=== PATIENT | female | born 2000 | race Caucasian/White ===

== ENCOUNTER 2023-08-09 17:56 | Emergency (ER) | payer BC, MEDICAID ==
[~2023-08-09] VITALS: Ht 157.5 cm; Wt 63.5 kg
[2023-08-09 17:57] VITALS: BP_SYST 150; PULSE 79; RESP 16; TEMP 97.7; O2SAT 99
[2023-08-09] MEDS ORDERED: KETOROLAC TROMETHAMINE 30 MG VIAL ONE (19:07)
[2023-08-09] MEDS ORDERED: KETOROLAC TROMETHAMINE 30 MG VIAL IVP ONE (19:15)
[2023-08-09 19:38] LABS: BILIRUBIN,URINE NEGATIVE (NEGATIVE); BLOOD, URINE NEGATIVE (NEGATIVE); CLARITY/URINE CLEAR (CLEAR); COLOR,URINE YELLOW (YELLOW); GLUCOSE,URINE NEGATIVE (NEGATIVE); KETONES,URINE NEGATIVE (NEGATIVE); LEUKOCYTE ESTERASE ,URINE NEGATIVE (NEGATIVE); NITRITE, URINE NEGATIVE (NEGATIVE); PH,URINE 8.5 (5.0-8.0); PROTEIN URINE NEGATIVE (NEGATIVE); UROBILINOGEN,URINE 0.2 (0.2-1.0)
[2023-08-09] MEDS ORDERED: ONDA-8 TL (22:15)
[2023-08-09] MEDS ORDERED: IBUP-1969 PO (22:15)
[2023-08-09 22:26] VITALS: BP_SYST 145; PULSE 75; RESP 16; TEMP 97.8; O2SAT 99
== END 2023-08-09 22:24 | disposition home or self-care (01) ==
LOC: SED 17:56
DX: R10.2 Pelvic and perineal pain (principal); R10.30 Lower abdominal pain, unspecified; Z79.899 Other long term (current) drug therapy
CPT/HCPCS: 99285; 96374; 76830; 76857; 81001; 81025; 81003; J1885

== ENCOUNTER 2023-08-15 11:23 | Emergency (ER) | payer BC ==
[~2023-08-15] VITALS: Ht 157.5 cm; Wt 18.1 kg
[~2023-08-15 11:23] MED LIST: IBUP-1969 PO; ONDA-8 TL
[2023-08-15 11:56] VITALS: BP_SYST 126; PULSE 89; RESP 20; TEMP 98.2; O2SAT 96
[2023-08-15 12:37] LABS: BASOPHILS % (AUTO) 0.3 % (0.0-2.0); HEMATOCRIT 41.7 % (36-48); HEMOGLOBIN 13.8 g/dL (12.0-16.0); LYMPHOCYTES # (AUTO) 0.3 K/uL (1.0-5.5); LYMPHOCYTES % (AUTO) 2.9 % (20.5-51.5); MEAN CORPUSCULAR HEMOGLOBIN 30 pg (27-31); MEAN CORPUSCULAR HGB CONC 33 % (32-36); MEAN CORPUSCULAR VOLUME 90 fL (79.0-98.0); MONOCYTES # (AUTO) 0.5 K/uL (0.0-1.0); MONOCYTES % (AUTO) 5.1 % (1.7-9.3); NEUTROPHILS # (AUTO) 9.6 K/uL (1.8-7.7); NEUTROPHILS % (AUTO) 91.7 % (40.0-70.0); PLATELET COUNT (AUTO) 315 K/uL (130-430); RED BLOOD CELL COUNT(AUTO) 4.62 MIL/uL (4.2-6.2); RED CELL DISTRIBUTION WIDTH 13.5 % (9.0-15.0); WHITE BLOOD COUNT (AUTO) 10.5 K/uL (4.8-10.8)
[2023-08-15 13:02] LABS: CALCIUM 9.3 mg/dL (8.4-11.0); POTASSIUM 3.7 mmol/L (3.5-5.1)
[2023-08-15 13:03] LABS: ALBUMIN 3.8 g/dL (3.4-4.8); CREATININE 0.85 mg/dL (0.55-1.30); TOTAL BILIRUBIN 1.6 mg/dL (0.0-1.0); TOTAL PROTEIN, SERUM 7.2 g/dL (6.4-8.3)
[2023-08-15] MEDS ORDERED: OXYCODONE/ACETAMINOPHEN 5-325 TABLET PO ONE (13:15)
[2023-08-15] MEDS ORDERED: CYCLOBENZAPRINE HCL 10 MG TABLET (FLEXERIL) PO ONE (13:15)
[2023-08-15] MEDS ORDERED: LIDOCAINE PATCH 5% 1 EA TP SCH (13:15)
[2023-08-15] MEDS ORDERED: LIDOCAINE PATCH 5% 1 EA TP ONE (13:15)
[2023-08-15] MEDS ORDERED: ACET-2634 PO (14:05)
[2023-08-15] MEDS ORDERED: CYCL10TA24 PO (14:05)
[2023-08-15] MEDS ORDERED: LIDO1ADH22 TP (14:09)
[2023-08-15 14:17] LABS: BILIRUBIN,URINE NEGATIVE (NEGATIVE); BLOOD, URINE NEGATIVE (NEGATIVE); COLOR,URINE YELLOW (YELLOW); GLUCOSE,URINE NEGATIVE (NEGATIVE); KETONES,URINE 2+ (NEGATIVE); LEUKOCYTE ESTERASE ,URINE NEGATIVE (NEGATIVE); NITRITE, URINE NEGATIVE (NEGATIVE); PH,URINE 6.5 (5.0-8.0); PROTEIN URINE TRACE (NEGATIVE)
[2023-08-15 14:19] LABS: CLARITY/URINE SLIGHTLY HAZY (CLEAR)
[2023-08-15 14:33] VITALS: BP_SYST 110; PULSE 73; RESP 18; TEMP 98.8; O2SAT 98
[2023-08-15 14:40] LABS: BACTERIA,URINE RARE /HPF (None Seen); MUCUS,URINE 1+ /LPF (None Seen); RBC,URINE 0-3 /HPF (0-3); WBC,URINE 0-3 /HPF (0-3)
== END 2023-08-15 14:34 | disposition home or self-care (01) ==
LOC: SED 11:23
DX: S39.012A Strain of muscle, fascia and tendon of lower back, initial encounter (principal); R10.9 Unspecified abdominal pain; R11.10 Vomiting, unspecified; Z79.899 Other long term (current) drug therapy; X50.0XXA Overexertion from strenuous movement or load, initial encounter; Y93.89 Activity, other specified; Y92.89 Other specified places as the place of occurrence of the external cause; Y99.8 Other external cause status
CPT/HCPCS: 36415; 80053; 81000; 81001; 81015; 81025; 83605; 83690; 85025; 87040; 87086; 99284